=== PATIENT | female | born 1990 ===

== ENCOUNTER 2018-06-09 08:45 | Outpatient (CLI) | payer OTHER | END 2018-06-09 08:49 | disposition home or self-care (01) | LOC: SONOGRAMA 08:45 | DX: E04.1 Nontoxic single thyroid nodule (principal) ==

== ENCOUNTER 2021-10-13 08:21 | Outpatient (CLI) | payer OTHER | END 2021-10-13 08:24 | disposition home or self-care (01) | LOC: SONOGRAMA 08:21 | PROVIDERS: ATTEND Pathology Anatomic Pathology & Clinical Pathology | DX: E04.2 Nontoxic multinodular goiter (principal) ==

== ENCOUNTER 2022-04-06 08:17 | Outpatient (CLI) | payer OTHER | END 2022-04-06 08:19 | disposition home or self-care (01) | LOC: SONOGRAMA 08:17 | PROVIDERS: ATTEND Pathology Anatomic Pathology & Clinical Pathology | DX: E04.8 Other specified nontoxic goiter (principal) ==

== ENCOUNTER 2023-07-19 08:29 | Outpatient (CLI) | payer OTHER | END 2023-07-19 08:36 | disposition home or self-care (01) | LOC: SONOGRAMA 08:29 | PROVIDERS: ATTEND Pathology Anatomic Pathology & Clinical Pathology | DX: D34 Benign neoplasm of thyroid gland (principal); E04.9 Nontoxic goiter, unspecified ==